=== PATIENT | female | born 2000 | race Caucasian/White ===

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

== ENCOUNTER 2022-08-01 08:40 | Emergency (ER) | payer OTHER ==
[2022-08-01 08:58] VITALS: BP 116/81; PULSE 108; RESP 20; TEMP 98.8; BMI 24.4
[2022-08-01 10:01] LABS: THROAT:GRP A STREP DETECTED (NOTDETECTED)
== END 2022-08-01 10:12 | disposition home or self-care (01) ==
LOC: JER 08:40 → JERFT 08:40
DX: J02.0 Streptococcal pharyngitis (principal); Z20.822 Contact with and (suspected) exposure to COVID-19
CPT/HCPCS: 0241U-QW; 87651; 99283-25

== ENCOUNTER 2025-01-13 15:39 | Emergency (ER) | payer OTHER ==
[2025-01-13 15:48] VITALS: BP 124/80; PULSE 78; RESP 18; TEMP 98; BMI 29.2
[2025-01-13] MEDS ORDERED: ACETAMINOPHEN 325 MG TABLET (FP) ONE (16:37)
[2025-01-13] MEDS: ACETAMINOPHEN 325 MG TABLET (FP) PO ONE (16:44)
[2025-01-13 18:13] LABS: ABSOLUTE IMMATURE GRANULOCYTES 0.04 x10^3/uL (0.0-0.031); BASOPHILS # 0.09 x10^3/uL (0.01-0.08); EOSINOPHIL % 3.3 % (0.7-5.8); EOSINOPHILS # 0.40 x10^3/uL (0.04-0.36); MCHC 31.7 g/dl (32.2-35.5); MEAN CELL VOLUME 85.7 fl (79.4-94.8); MEAN PLT VOLUME 10.7 fl (9.4-12.3); MONOCYTE # 0.64 x10^3/uL (0.24-0.86); MONOCYTE % 5.3 % (4.7-12.5); RDW 12.4 % (12.1-16.5)
[2025-01-13 18:16] LABS: URINE APPEARANCE CLEAR; URINE BILIRUBIN NEGATIVE (NEGATIVE); URINE COLOR YELLOW; URINE GLUCOSE (UA) NEGATIVE (NEGATIVE); URINE KETONE NEGATIVE (NEGATIVE); URINE LEUK ESTERASE NEGATIVE (NEGATIVE); URINE NITRITE NEGATIVE (NEGATIVE); URINE PROTEIN NEGATIVE (NEGATIVE); URINE UROBILINOGEN 0.2 mg/dL (0.2-1.0)
[2025-01-13 19:33] LABS: HIV INTERPRETATION NEGATIVE (NEGATIVE)
[2025-01-13 19:34] LABS: HCV DIAGNOSTIC IN-HOUSE W/RFLX NON-REACTIVE (NONREACTIVE)
[2025-01-13 22:01] LABS: CO2 20.0 mmol/L (21-32)
[2025-01-13 22:02] LABS: ALK PHOS 78.0 U/L (40-150)
[2025-01-13 22:05] LABS: CREATININE 0.58 mg/dL (0.55-1.3); SGOT/AST 47.0 U/L (5-34); SGPT/ALT 85.0 U/L (0-55)
[2025-01-13 22:40] LABS: GLUCOSE,RANDOM 86.0 mg/dL (74-106); TOT PROT 7.6 g/dl (6.4-8.2)
== END 2025-01-13 20:09 | disposition home or self-care (01) ==
LOC: JER 15:39
DX: O20.0 Threatened abortion (principal); Z3A.01 Less than 8 weeks gestation of pregnancy
CPT/HCPCS: 36415; 76817-TC; 80053; 81003; 84702; 85025; 86803; 87086; 87389; 99284-25